=== PATIENT | male | born 1960 | race Caucasian/White ===

== ENCOUNTER → 2019-04-24 | Outpatient (CLI) | payer OTHER ==
--- NOTE | 2019-04-28 08:38 | SLEEPCENT ---
DATE OF PROCEDURE: 04/24/2019 ORDERED BY: CLARISSA Perez Nocturnal polysomnography was performed for the titration of pressure therapy in this patient with obstructive sleep apnea syndrome. For testing a ResMed AirFit F20 full-face mask of large size was used; 8 cm of water with pressure was initially applied to the circuit and the lights were extinguished. 7 hours and 20 minutes of data were reviewed. There were 196 minutes of sleep identified. Sleep latency was mildly prolonged at 27 minutes. Rapid eye movement (REM) latency was normal at 71 minutes. Sleep architecture improved with optimal pressure therapy. Overall sleep efficiency was 67.9%. The patient's electrocardiogram showed sinus rhythm with an average heart rate of 56 beats per minute. Electroencephalogram (EEG) showed reasonably normal waveforms for awake and sleep stages. Fair palliation of respiratory events was seen at a CPAP pressure of +9. Some breakthrough events prompted an increase in pressure to 12. Further increase to 14 was made shortly thereafter the test ended. There was some limb activity appreciated in the electromyogram (EMG) leads. Limb movement arousal index was 8.3. IMPRESSION: Obstructive sleep apnea syndrome (G47.33). RECOMMENDATIONS: Though an optimal CPAP pressure is difficult to determine based on these results a pressure of 14 cm would seem reasonable given that hypopneic events were persistent despite pressure of 12. Close clinical followup is recommended.
== END ==
LOC: M SLEEP 19:41
PROVIDERS: ATTEND Physician Assistant
DX: G47.33 Obstructive sleep apnea (adult) (pediatric) (principal)

== ENCOUNTER → 2023-08-25 | Outpatient (REF) | payer OTHER, BC | LOC: M SFHCDERM 18:07 | PROVIDERS: ATTEND Physician Assistant | DX: D48.9 Neoplasm of uncertain behavior, unspecified (principal); L85.9 Epidermal thickening, unspecified; L90.9 Atrophic disorder of skin, unspecified ==